=== PATIENT | male | born 1995 | race Caucasian/White ===

== ENCOUNTER 2022-02-02 20:37 | Emergency (ER) | payer OTHER ==
--- NOTE | 2022-02-02 21:27 | XRAY Report ---
PROCEDURE: Foot 3 View LT INDICATIONS: injury to 4th 5th toes L, swelling bruising TECHNIQUE: 3 views of the foot were acquired. COMPARISON: None FINDINGS: Bones: Nondisplaced fracture involving the base of the left fifth toe proximal phalanx with intra-art icular extension. Overlying soft tissue edema. Remainder of the visualized osseous structures appear intact. No suspicious bony lesions. Soft tissues: No tibiotalar joint effusion. Achilles tendon appears normal. IMPRESSION: Nondisplaced, intra-articular fracture involving the base of the left fifth toe proximal phalanx. Reviewed by: Efra Bryant MD on 02/02/2022 9:26 PM PDT Approved by: Efra Bryant MD on 02/02/2022 9:26 PM PDT Station ID: [id number]
--- NOTE | 2022-02-02 22:10 | ED Physician Documentation ---
PD HPI LOWER EXT INJURY - Stated complaint Stated Complaint: LT TOES INJ - Chief complaint Chief Complaint: Trauma Ext - History obtained from History obtained from: Patient - History of Present Illness PD HPI LOW EXT INJURY LOCATION: Left, Toe Type of injury: Blunt / blow Where injury occurred: Work Timing - onset: Enter time (1430), Today Timing - duration: Hours Timing - details: Abrupt onset, Still present Improved by: Rest, Immobilization Worsened by: Moving, Palpating Associated symptoms: Swelling, Discolored. No: Weakness, Numbness Contributing factors: No: Anticoagulated Similar symptoms before: Diagnosis (toe fracture) Recently seen: Not recently seen - Additional information Additional information: 26-year-old male was walking in jammed his foot into a wall at 1430. He has been having some trouble walking on this and comes into the emerge department concerned with the broken toe. He has discoloration to the toes. Review of Systems Constitutional: denies: Fever Respiratory: denies: Cough GI: denies: Vomiting, Constipation, Diarrhea PD PAST MEDICAL HISTORY - Past Medical History Past Medical History: No Cardiovascular: None Respiratory: None Neuro: None Endocrine/Autoimmune: None GI: None : None HEENT: None Psych: None Musculoskeletal: None Derm: None - Past Surgical History Past Surgical History: No - Present Medications Home Medications: Ambulatory Orders Medication Instructions Recorded Confirmed No Known Home Medications 02/02/22 02/02/22 - Allergies Allergies/Adverse Reactions: Allergies Allergy/AdvReac Type Severity Reaction Status Date / Time Penicillins Allergy Hives Verified 02/02/22 20:45 - Social History Does the pt smoke?: Yes Smoking Status: Current every day smoker Does the pt drink ETOH?: No Does the pt have substance abuse?: No - Immunizations Immunizations are current?: Yes - POLST Patient has POLST: No PD ED PE NORMAL - Vitals Vital signs reviewed: Yes (hypertensive ) - General General: Alert and oriented X 3, No acute distress, Well developed/nourished - HEENT HEENT: Atraumatic, PERRL, EOMI - Respiratory Respiratory: No respiratory distress - Derm Derm: Normal color, Warm and dry, No rash - Extremities Extremities: No deformity, Other (There is eccymosis to the proximal 5th digit as well as to the distal 2nd digit on the left foot) - Neuro Neuro: Alert and oriented X 3, 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, No motor deficit, No sensory deficit, Normal speech Eye Opening: Spontaneous Motor: Obeys Commands Verbal: Oriented GCS Score: 15 - Psych Psych: Normal mood, Normal affect Results - Vitals Vitals: Vital Signs - 24 hr 02/02/22 02/02/22 02/02/22 20:42 20:54 22:28 Temperature 36.8 C 36.3 C L Heart Rate 75 78 Respiratory 16 16 16 Rate Blood Pressure 138/75 H 116/76 O2 Saturation 98 97 Oxygen O2 Source Room air - Rads (name of study) foot Radiology: Prelim report reviewed (Impression: Nondisplaced, intra-articular fracture involving the base of the fifth toe proximal phalanx.), EMP read indepedently, See rad report PD MEDICAL DECISION MAKING - ED course Complexity details: reviewed results, re-evaluated patient, considered differential, d/w patient, d/w family ED course: 26-year-old male with a foot contusion and ecchymosis and there is evidence of fracture the proximal fifth phalanx. He is placed into a postop shoe and a metatarsal pad is placed allowing the patient to bear weight without pain Departure - Departure Disposition: 01 Home, Self Care Clinical Impression: Toe fracture, left Qualifiers: Encounter type: initial encounter Toe: lesser toe Fracture type: closed Phalanx: proximal Fracture alignment: nondisplaced Qualified Code(s): S92.515A - Nondisplaced fracture of proximal phalanx of left lesser toe(s), initial encounter for closed fracture Condition: Stable Instructions: ED Fx Toe Closed Follow-Up: MANUEL SOMMERS MD [Primary Care Provider] - Comments: Fredy, today it looks like you have a fracture of your left fifth toe. Use the postop shoe and metatarsal padding as instructed. Use crutches if necessary. Forms: Activity restrictions Discharge Date/Time: 02/02/22 22:38
[2022-02-02 22:30] VITALS: BP 116/76
== END 2022-02-02 22:38 | disposition home or self-care (01) ==
LOC: ED 20:37
DX: S92.515A Nondisplaced fracture of proximal phalanx of left lesser toe(s), initial encounter for closed fracture (principal); W22.8XXA Striking against or struck by other objects, initial encounter; Y93.01 Activity, walking, marching and hiking; Y99.0 Civilian activity done for income or pay; F17.200 Nicotine dependence, unspecified, uncomplicated
CPT/HCPCS: 99283; 99284